=== PATIENT | female | born 1945 | race Caucasian/White ===

== ENCOUNTER 2017-05-11 14:01 | Emergency (ER) | payer OTHER ==
[~2017-05-11] VITALS: Ht 170.2 cm; Wt 59.0 kg
[~2017-05-11 14:01] MED LIST: ALL100T PO; ASPI-498 PO; GABA-497 PO; HYDR-4663 PO; HYDR200T PO; SENN-79 PO; SIMV-8 PO
[2017-05-11] MEDS ORDERED: VANCOMYCIN 1GM/250ML D5W 250 ML IV ONE (15:15)
[2017-05-11 15:37] LABS: Basophils # (auto) 0 uL; Basophils % (auto) 0.3 % (0.0-2.0); CONDITION Y; Eosinophils # (auto) 0.4 uL; Eosinophils % (auto) 2.4 % (0.0-7.0); Hemoglobin 13.2 g/dL (12.2-16.2); Lymphocytes # (auto) 1.4 uL; Lymphocytes % (auto) 9.9 % (10.0-50.0); Mean Corpuscular Hemoglobin 33.4 pg (28.0-32.0); Mean Corpuscular Hgb Conc. 33.7 g/dL (32.0-36.0); Mean Platelet Volume 9.8 fL (7.4-10.4); Monocytes % (auto) 6.8 % (0.0-12.0); Neutrophils # (auto) 11.7 uL; Neutrophils % (auto) 80.6 % (37.0-80.0); Platelet Count (auto) 269 10^3/uL (140-450); Red Cell Distribution Width 15.4 % (11.6-16.0); White Blood Cell 14.5 10^3/uL (4.4-10.8)
[2017-05-11 15:47] VITALS: BP 98/57
[2017-05-11 15:55] LABS: Albumin 2.3 g/dL (3.4-5.0); BUN/Creatinine Ratio 8.8; Calcium 9.4 mg/dL (8.5-10.1); Potassium 3.5 mmol/L (3.5-5.1)
[2017-05-11 16:00] LABS: Bilirubin, Total 0.4 mg/dL (0.2-1.0); Total Protein 6.3 g/dL (6.4-8.2)
== END 2017-05-11 17:15 | disposition home or self-care (01) ==
LOC: ER 14:06
DX: I21.4 Non-ST elevation (NSTEMI) myocardial infarction (principal); B96.89 Other specified bacterial agents as the cause of diseases classified elsewhere; I25.10 Atherosclerotic heart disease of native coronary artery without angina pectoris; G30.9 Alzheimer's disease, unspecified; F02.80 Dementia in other diseases classified elsewhere, unspecified severity, without behavioral disturbance, psychotic disturbance, mood disturbance, and anxiety; E11.42 Type 2 diabetes mellitus with diabetic polyneuropathy; I12.0 Hypertensive chronic kidney disease with stage 5 chronic kidney disease or end stage renal disease; E11.22 Type 2 diabetes mellitus with diabetic chronic kidney disease; N18.6 End stage renal disease; E03.9 Hypothyroidism, unspecified; F17.210 Nicotine dependence, cigarettes, uncomplicated; Z99.2 Dependence on renal dialysis; Z91.041 Radiographic dye allergy status
CPT/HCPCS: 36415; 71010; 80053; 84484; 85025; 93005; 96365; 99285; J1450; J3370

== ENCOUNTER 2017-08-08 16:20 | Inpatient (IN) | payer OTHER ==
[~2017-08-08] VITALS: Ht 170.2 cm; Wt 109.4 kg
[~2017-08-08 16:20] MED LIST changes: -HYDR-4663 PO; +HYDR-4683 PO
[2017-08-08 16:56] LABS: Basophils # (auto) 0.2 uL; Basophils % (auto) 1.1 % (0.0-2.0); Eosinophils # (auto) 0.7 uL; Hematocrit 39.8 % (36.0-46.0); Hemoglobin 13.2 g/dL (12.2-16.2); Lymphocytes # (auto) 1.7 uL; Lymphocytes % (auto) 12.7 % (10.0-50.0); Mean Corpuscular Hemoglobin 33.1 pg (28.0-32.0); Mean Corpuscular Hgb Conc. 33.2 g/dL (32.0-36.0); Mean Corpuscular Volume 99.6 fL (80.0-100.0); Mean Platelet Volume 8.3 fL (6.9-10.8); Monocytes # (auto) 0.9 uL; Monocytes % (auto) 6.9 % (0.0-12.0); Neutrophils # (auto) 10.1 uL; Neutrophils % (auto) 74.3 % (37.0-80.0); Platelet Count (auto) 258 10^3/uL (140-450); White Blood Cell 13.6 10^3/uL (4.4-10.8)
[2017-08-08 17:18] LABS: Anion Gap 11 (5-15); Aspartate Aminotransferase 11 U/L (15-37); BUN/Creatinine Ratio 9.3; Blood Urea Nitrogen 61 mg/dL (7-18); Calcium 9.5 mg/dL (8.5-10.1); Carbon Dioxide 21 mmol/L (21-32); Chloride 100 mmol/L (98-107); GFR African American 8 mL/min; GFR Non-African American 7 mL/min; Glucose 114 mg/dL (74-106); Sodium 132 mmol/L (136-145)
[2017-08-08 17:22] LABS: Alkaline Phosphatase 118 U/L (45-117); Bilirubin, Total 2.2 mg/dL (0.2-1.0); Total Protein 7.5 g/dL (6.4-8.2)
[2017-08-08 17:26] LABS: B-Type Natriuretic Peptide 287.63 pg/mL (0-100)
[2017-08-08 17:34] LABS: Temperature: 23.1 C (20.0-25.0)
[2017-08-08 17:36] LABS: Potassium 5.8 mmol/L (3.5-5.1)
[2017-08-08] MEDS ORDERED: ALBUTEROL SULF 2.5 MG/0.5ML(0.5%) NEB SOLN NEB ONE (19:00)
[2017-08-08] MEDS ORDERED: CALCIUM GLUC 4.65meq/50ml D5AE 50 ML IV ONE (19:00)
[2017-08-08] MEDS ORDERED: InsuLIN REG 1unit/0.01ml Soln (100units/ml) IV ONE (19:00)
[2017-08-08] MEDS ORDERED: DEXTROSE (50%) 50ML SYRG IV ONE (19:00)
[2017-08-08] MEDS ORDERED: SODIUM POLYSTYRENE SULF 15GM/60ML SUSP PO ONE (19:00)
[2017-08-08] MEDS ORDERED: SODIUM BICARBONATE 8.4% INJ 50ML SYRINGE IV ONE (19:00)
[2017-08-08] MEDS ORDERED: HYDROcodone-ACET 10/325MG TAB PO ONE (19:15)
[2017-08-08] MEDS ORDERED: cefTRIAXone 1GM/10ml IVPUSH 10 ML IV ONE (19:15)
[2017-08-08] MEDS ORDERED: ONDANSETRON HCL 4 MG/2 ML VIAL IV ONE (19:45)
[2017-08-08] MEDS ORDERED: TEMAZEPAM 15 MG CAP PO PRN (23:00)
[2017-08-08] MEDS ORDERED: ACETAMINOPHEN 325 MG TAB PO PRN (23:00)
[2017-08-08] MEDS ORDERED: HYDROcodone-ACET 5/325MG TAB PO PRN (23:00)
[2017-08-08] MEDS ORDERED: NITROGLYCERIN 0.4 MG SL TAB SL PRN (23:00)
[2017-08-08] MEDS ORDERED: MORPHINE SULF INJ 2 MG/ML SYRINGE 1ML IV PRN (23:00)
[2017-08-08] MEDS ORDERED: ONDANSETRON HCL 4 MG/2 ML VIAL IV PRN (23:00)
[2017-08-09] VITALS (7 sets, daily range): BP systolic 113–148; BP diastolic 54–82
[2017-08-09] MEDS ORDERED: ONDA4TAB5 PO (01:13)
[2017-08-09] MEDS ORDERED: METO10TA3 PO (01:13)
[2017-08-09] MEDS ORDERED: LACT10SO60 PO (01:13)
[2017-08-09] MEDS ORDERED: MORP15TA PO (04:10)
[2017-08-09] MEDS ORDERED: HYDR50TA15 PO (04:10)
[2017-08-09] MEDS ORDERED: OMEP20CA74 PO (04:10)
[2017-08-09 06:28] LABS: Basophils # (auto) 0.1 uL; Basophils % (auto) 0.5 % (0.0-2.0); Eosinophils # (auto) 0.3 uL; Hematocrit 32.1 % (36.0-46.0); Hemoglobin 10.8 g/dL (12.2-16.2); Lymphocytes # (auto) 1.2 uL; Lymphocytes % (auto) 11.4 % (10.0-50.0); Mean Corpuscular Hemoglobin 33.4 pg (28.0-32.0); Mean Corpuscular Hgb Conc. 33.6 g/dL (32.0-36.0); Mean Corpuscular Volume 99.3 fL (80.0-100.0); Mean Platelet Volume 8.5 fL (6.9-10.8); Monocytes # (auto) 0.9 uL; Monocytes % (auto) 7.9 % (0.0-12.0); Neutrophils # (auto) 8.4 uL; Neutrophils % (auto) 77.2 % (37.0-80.0); Platelet Count (auto) 210 10^3/uL (140-450); Red Cell Distribution Width 14.7 % (11.8-14.3); White Blood Cell 10.9 10^3/uL (4.4-10.8)
[2017-08-09 06:48] LABS: Albumin 2.4 g/dL (3.4-5.0); Calcium 9.1 mg/dL (8.5-10.1); Potassium 4.9 mmol/L (3.5-5.1)
[2017-08-09 06:49] LABS: BUN/Creatinine Ratio 9.9
[2017-08-09 06:54] LABS: Total Protein 5.7 g/dL (6.4-8.2)
[2017-08-09] MEDS ORDERED: ALLOPURINOL 100 MG TAB PO SCH (10:00)
[2017-08-09] MEDS ORDERED: PANTOPRAZOLE 40 MG TAB PO SCH (10:00)
[2017-08-09] MEDS ORDERED: HYDROXYCHLOROQUINE SULFATE 200 MG TAB PO SCH (10:00)
[2017-08-09] MEDS ORDERED: ENOXAPARIN SOD 30 MG/0.3 ML SYRINGE SC SCH (10:00)
[2017-08-09] MEDS ORDERED: HYDROcodone-ACET 10/325MG TAB PO PRN (11:15)
[2017-08-09] MEDS ORDERED: diphenhdrAMINE HCL 25 MG CAP PO ONE (11:15)
[2017-08-09] MEDS ORDERED: MORPHINE SULF 15mg ER tab PO PRN (11:15)
[2017-08-09] MEDS: HEPARIN SODIUM (PORCINE) 5000 UNITS/ML 1ML VIAL SC SCH (11:59)
[2017-08-09] MEDS ORDERED: HEPARIN SODIUM (PORCINE) 5000 UNITS/ML 1ML VIAL XX ONE (12:30)
[2017-08-09] MEDS ORDERED: ATORVASTATIN 20 MG TAB PO SCH (22:00)
[2017-08-09] MEDS ORDERED: cefTRIAXone 1GM/10ml IVPUSH 10 ML IV SCH (22:00)
== END 2017-08-09 18:58 | disposition home or self-care (01) | DRG 640 ==
LOC: ER 16:25 → TELE-EAST 16:26
PROVIDERS: ADMIT Nurse Practitioner; ATTEND Nurse Practitioner
PROC: 5A1D70Z Performance of Urinary Filtration, Intermittent, Less than 6 Hours Per Day (ICD-10-PCS; principal; 2017-08-09)
DX: E87.5 Hyperkalemia (principal); N18.6 End stage renal disease; E11.22 Type 2 diabetes mellitus with diabetic chronic kidney disease; E87.70 Fluid overload, unspecified; I13.11 Hypertensive heart and chronic kidney disease without heart failure, with stage 5 chronic kidney disease, or end stage renal disease; F17.210 Nicotine dependence, cigarettes, uncomplicated; I25.10 Atherosclerotic heart disease of native coronary artery without angina pectoris; J43.9 Emphysema, unspecified; E66.9 Obesity, unspecified; E05.00 Thyrotoxicosis with diffuse goiter without thyrotoxic crisis or storm; D72.829 Elevated white blood cell count, unspecified; Z82.49 Family history of ischemic heart disease and other diseases of the circulatory system; Z83.3 Family history of diabetes mellitus; Z85.118 Personal history of other malignant neoplasm of bronchus and lung; Z99.2 Dependence on renal dialysis; Z91.041 Radiographic dye allergy status; Z90.49 Acquired absence of other specified parts of digestive tract; Z68.37 Body mass index [BMI] 37.0-37.9, adult
CPT/HCPCS: 36415; 70450; 71020; 71250; 74176; 80053; 82962; 83880; 84132; 84484; 85025; 87081; 90935; 93005; 93970; 94644; 96365; 96367; 96375; 99291; J0610; J1815; J2405

== ENCOUNTER 2017-09-12 20:01 | Inpatient (IN) | payer OTHER ==
[~2017-09-12] VITALS: Ht 170.2 cm; Wt 59.0 kg
[~2017-09-12 20:01] MED LIST changes: +ALPR0.254 PO; +ATOR40TA52 PO; +DIPH25CA46 PO; -GABA-497 PO; +GABA300C10 PO; +HYDR50TA15 PO; +LACT10SO60 PO; +METO10TA3 PO; +MORP15TA PO; +OMEP20CA74 PO; +ONDA4TAB5 PO
[2017-09-12 20:53] LABS: Basophils # (auto) 0.1 uL; Basophils % (auto) 0.7 % (0.0-2.0); Eosinophils # (auto) 0.2 uL; Eosinophils % (auto) 1.6 % (0.0-7.0); Hematocrit 31.5 % (36.0-46.0); Hemoglobin 10.5 g/dL (12.2-16.2); Lymphocytes # (auto) 1.1 uL; Lymphocytes % (auto) 9.9 % (10.0-50.0); Mean Corpuscular Hemoglobin 32.7 pg (28.0-32.0); Mean Corpuscular Hgb Conc. 33.3 g/dL (32.0-36.0); Monocytes # (auto) 0.6 uL; Monocytes % (auto) 5.3 % (0.0-12.0); Neutrophils # (auto) 9.4 uL; Neutrophils % (auto) 82.5 % (37.0-80.0); Platelet Count (auto) 213 10^3/uL (140-450); Red Blood Cells 3.22 10^6/uL (4.0-5.20); Red Cell Distribution Width 15.1 % (11.8-14.3); White Blood Cell 11.4 10^3/uL (4.4-10.8)
[2017-09-12 20:57] LABS: Albumin 2.3 g/dL (3.4-5.0); Calcium 8.5 mg/dL (8.5-10.1); Magnesium 2.1 mg/dL (1.6-2.6); Potassium 3.5 mmol/L (3.5-5.1)
[2017-09-12 20:59] LABS: BUN/Creatinine Ratio 7.6
[2017-09-12] MEDS ORDERED: ASPirin 81 mg TAB PO ONE (21:00)
[2017-09-12] MEDS ORDERED: MORPHINE SULFATE 4 MG/ML SYR/VIAL IV ONE (21:00)
[2017-09-12 21:03] LABS: Bilirubin, Total 0.2 mg/dL (0.2-1.0); Total Protein 6.1 g/dL (6.4-8.2)
[2017-09-12] MEDS ORDERED: ALPRAZolam 0.5 MG TAB PO ONE (21:30)
[2017-09-12 22:33] LABS: Urine Bacteria NONE SEEN /hpf (None Seen); Urine Blood Negative /uL (Negative); Urine Specific Gravity 1.007 (1.001-1.035); Urine WBC 2 /hpf (0 - 5)
[2017-09-13] VITALS (7 sets, daily range): BP systolic 119–165; BP diastolic 58–75
[2017-09-13] MEDS ORDERED: NITROGLYCERIN 0.4 MG SL TAB SL PRN (00:45)
[2017-09-13] MEDS ORDERED: ALPRAZolam 0.25 MG TAB PO PRN (00:45)
[2017-09-13] MEDS ORDERED: DEXTROSE (50%) 50ML SYRG IV PRN (00:45)
[2017-09-13] MEDS ORDERED: ALBUTEROL SULF 2.5 MG/0.5ML(0.5%) NEB SOLN NEB PRN (00:45)
[2017-09-13] MEDS ORDERED: ONDANSETRON HCL 4 MG/2 ML VIAL IV PRN (00:45)
[2017-09-13] MEDS ORDERED: TEMAZEPAM 15 MG CAP PO PRN (00:45)
[2017-09-13] MEDS ORDERED: MORPHINE SULFATE 4 MG/ML SYR/VIAL IV PRN (00:45)
[2017-09-13] MEDS ORDERED: METOPROLOL TARTRATE 25 MG TAB PO ONE (00:45)
[2017-09-13] MEDS ORDERED: ACETAMINOPHEN 325 MG TAB PO PRN (00:45)
[2017-09-13] MEDS: InsuLIN REG 1unit/0.01ml Soln (100units/ml) SC SCH ×2 (06:33→12:00)
[2017-09-13] MEDS: ACCU-CHEK COMFORT CURVE STRIP VI SCH ×2 (06:33→12:38)
[2017-09-13] MEDS: HYDROcodone-ACET 5/325MG TAB PO PRN ×2 (09:29→13:32)
[2017-09-13] MEDS ORDERED: PANTOPRAZOLE 40 MG TAB PO SCH (10:00)
[2017-09-13] MEDS ORDERED: HYDROXYCHLOROQUINE SULFATE 200 MG TAB PO SCH (10:00)
[2017-09-13] MEDS ORDERED: HEPARIN SODIUM (PORCINE) 5000 UNITS/ML 1ML VIAL SC SCH (10:00)
[2017-09-13] MEDS ORDERED: METOPROLOL TARTRATE 25 MG TAB PO SCH (10:00)
[2017-09-13] MEDS ORDERED: ENOXAPARIN SOD 30 MG/0.3 ML SYRINGE SC SCH (10:00)
[2017-09-13] MEDS ORDERED: ASPirin 81 mg TAB PO SCH (10:00)
[2017-09-13] MEDS ORDERED: ALLOPURINOL 100 MG TAB PO SCH (10:00)
[2017-09-13] MEDS ORDERED: GABAPENTIN 300 MG CAP PO SCH (10:00)
[2017-09-13] MEDS ORDERED: ATORVASTATIN 20 MG TAB PO SCH (22:00)
== END 2017-09-13 16:50 | disposition home or self-care (01) | DRG 205 ==
LOC: ER 20:01 → EDBD 20:01 → TELE 20:02 → TELE-WESTW 09-13 03:00
PROVIDERS: ADMIT Nurse Practitioner; ATTEND Nurse Practitioner
DX: M94.0 Chondrocostal junction syndrome [Tietze] (principal); E43 Unspecified severe protein-calorie malnutrition; I13.2 Hypertensive heart and chronic kidney disease with heart failure and with stage 5 chronic kidney disease, or end stage renal disease; E11.22 Type 2 diabetes mellitus with diabetic chronic kidney disease; M32.9 Systemic lupus erythematosus, unspecified; E11.40 Type 2 diabetes mellitus with diabetic neuropathy, unspecified; E11.51 Type 2 diabetes mellitus with diabetic peripheral angiopathy without gangrene; N18.6 End stage renal disease; I25.10 Atherosclerotic heart disease of native coronary artery without angina pectoris; E11.65 Type 2 diabetes mellitus with hyperglycemia; D63.8 Anemia in other chronic diseases classified elsewhere; E78.5 Hyperlipidemia, unspecified; F17.210 Nicotine dependence, cigarettes, uncomplicated; F41.9 Anxiety disorder, unspecified; E05.00 Thyrotoxicosis with diffuse goiter without thyrotoxic crisis or storm; G47.00 Insomnia, unspecified; I50.9 Heart failure, unspecified; J44.9 Chronic obstructive pulmonary disease, unspecified; M10.9 Gout, unspecified; Z83.3 Family history of diabetes mellitus; Z86.73 Personal history of transient ischemic attack (TIA), and cerebral infarction without residual deficits; Z95.1 Presence of aortocoronary bypass graft; Z99.2 Dependence on renal dialysis; Z91.041 Radiographic dye allergy status; Z79.899 Other long term (current) drug therapy; Z90.49 Acquired absence of other specified parts of digestive tract; Z85.89 Personal history of malignant neoplasm of other organs and systems; I25.2 Old myocardial infarction; Z68.20 Body mass index [BMI] 20.0-20.9, adult
CPT/HCPCS: 36415; 71045; 80053; 81001; 82962; 83735; 83880; 84484; 85025; 87081; 93005; 94761

== ENCOUNTER 2017-09-21 19:40 | Inpatient (IN) | payer OTHER ==
[~2017-09-21] VITALS: Ht 154.9 cm; Wt 58.1 kg
[2017-09-21] MEDS ORDERED: ACETAMINOPHEN 325 MG TAB PO ONE (20:15)
[2017-09-21 21:26] LABS: Basophils # (auto) 0 uL; Basophils % (auto) 0.7 % (0.0-2.0); Eosinophils # (auto) 0 uL; Eosinophils % (auto) 0.1 % (0.0-7.0); Hematocrit 30.7 % (36.0-46.0); Hemoglobin 10.2 g/dL (12.2-16.2); Lymphocytes # (auto) 0.3 uL; Lymphocytes % (auto) 5.2 % (10.0-50.0); Mean Corpuscular Hemoglobin 32.8 pg (28.0-32.0); Mean Corpuscular Hgb Conc. 33.3 g/dL (32.0-36.0); Mean Corpuscular Volume 98.7 fL (80.0-100.0); Monocytes # (auto) 0.5 uL; Monocytes % (auto) 10.1 % (0.0-12.0); Neutrophils # (auto) 4.3 uL; Neutrophils % (auto) 83.9 % (37.0-80.0); Nucleated Red Blood Cells % 0.1 %; Platelet Count (auto) 169 10^3/uL (140-450); Red Blood Cells 3.11 10^6/uL (4.0-5.20); Red Cell Distribution Width 15.3 % (11.8-14.3); White Blood Cell 5.1 10^3/uL (4.4-10.8)
[2017-09-21 21:49] LABS: Albumin 2.7 g/dL (3.4-5.0); BUN/Creatinine Ratio 7.4; Bilirubin, Total 0.8 mg/dL (0.2-1.0); Calcium 8.4 mg/dL (8.5-10.1); Magnesium 2.8 mg/dL (1.6-2.6); Potassium 5.5 mmol/L (3.5-5.1); Total Protein 6.3 g/dL (6.4-8.2)
[2017-09-21 23:39] LABS: INR 1.04 (0.9-1.15); Partial Thromboplastin Time 44.8 sec (22.64-33.71); Prothrombin Time 11.3 sec (9.37-12.3)
[2017-09-22 00:24] VITALS: BP 114/68
[2017-09-22] MEDS ORDERED: HYDROcodone-ACET 10/325MG TAB PO ONE (01:15)
[2017-09-22] MEDS ORDERED: HEPARIN SODIUM (PORCINE) 5000 UNITS/ML 1ML VIAL ONE (02:18)
[2017-09-22 03:05] VITALS: BP 110/53
[2017-09-22 03:05] LABS: Urine Bacteria None Seen /hpf (None Seen)
[2017-09-22 03:33] LABS: Urine Specific Gravity 1.014 (1.001-1.035)
[2017-09-22 03:34] LABS: Urine Blood Normal /uL (Negative)
[2017-09-22 03:37] LABS: Urine WBC <1 /hpf (0 - 5)
[2017-09-22 04:19] VITALS: BP 118/60
[2017-09-22 06:48] LABS: Basophils # (auto) 0 uL; Basophils % (auto) 0.6 % (0.0-2.0); Eosinophils # (auto) 0 uL; Hemoglobin 10.5 g/dL (12.2-16.2); Lymphocytes # (auto) 0.6 uL; Lymphocytes % (auto) 10.5 % (10.0-50.0); Mean Corpuscular Hemoglobin 32.5 pg (28.0-32.0); Mean Corpuscular Hgb Conc. 32.7 g/dL (32.0-36.0); Mean Corpuscular Volume 99.1 fL (80.0-100.0); Monocytes # (auto) 0.4 uL; Monocytes % (auto) 7.2 % (0.0-12.0); Neutrophils # (auto) 4.5 uL; Neutrophils % (auto) 81.7 % (37.0-80.0); Platelet Count (auto) 164 10^3/uL (140-450); Red Blood Cells 3.23 10^6/uL (4.0-5.20); Red Cell Distribution Width 15.5 % (11.8-14.3); White Blood Cell 5.5 10^3/uL (4.4-10.8)
[2017-09-22 07:05] LABS: BUN/Creatinine Ratio 7.7; Calcium 8.6 mg/dL (8.5-10.1); Potassium 5.4 mmol/L (3.5-5.1)
[2017-09-22] MEDS ORDERED: DEXTROSE (50%) 50ML SYRG IV PRN (07:30)
[2017-09-22] MEDS ORDERED: ACETAMINOPHEN 500 MG TAB PO PRN (07:30)
[2017-09-22] MEDS: DOXYCYCLINE HYC 100MG/250ML 250 ML IV SCH ×2 (07:53→19:59)
[2017-09-22] MEDS: amLODIPine BESYLATE 5 MG TAB PO SCH (10:25)
[2017-09-22] MEDS: InsuLIN REG 1unit/0.01ml Soln (100units/ml) SC SCH ×3 (11:30→21:38)
[2017-09-22] MEDS: ACCU-CHEK COMFORT CURVE STRIP VI SCH ×3 (11:52→21:37)
[2017-09-22] MEDS: ENOXAPARIN SOD 30 MG/0.3 ML SYRINGE SC SCH (11:56)
[2017-09-22] MEDS ORDERED: cloNIDine HCL 0.1 MG TAB PO PRN (12:00)
[2017-09-22] MEDS: IPRATROPIUM BROM 0.5 MG/2.5ML INH SOL NEB SCH ×2 (12:04→18:00)
[2017-09-22] MEDS: ALBUTEROL SULF 2.5 MG/0.5ML(0.5%) NEB SOLN NEB SCH ×2 (12:04→18:00)
[2017-09-22] MEDS: METOPROLOL TARTRATE 25 MG TAB PO SCH ×2 (12:09→22:00)
[2017-09-22] MEDS: PANTOPRAZOLE 40 MG TAB PO SCH (12:09)
[2017-09-22] MEDS: GABAPENTIN 300 MG CAP PO SCH (14:26)
[2017-09-22 21:40] VITALS: BP 124/54
[2017-09-22] MEDS: ATORVASTATIN 20 MG TAB PO SCH (22:00)
[2017-09-23] MEDS: ALBUTEROL SULF 2.5 MG/0.5ML(0.5%) NEB SOLN NEB SCH ×4 (00:15→19:03)
[2017-09-23] MEDS: IPRATROPIUM BROM 0.5 MG/2.5ML INH SOL NEB SCH ×4 (00:16→19:03)
[2017-09-23] MEDS: HYDROcodone-ACET 5/325MG TAB PO PRN ×3 (00:24→22:10)
[2017-09-23 04:59] VITALS: BP 108/49
[2017-09-23 05:38] LABS: Basophils # (auto) 0 uL; Basophils % (auto) 0.2 % (0.0-2.0); Eosinophils # (auto) 0 uL; Hematocrit 25.6 % (36.0-46.0); Hemoglobin 8.5 g/dL (12.2-16.2); Lymphocytes # (auto) 0.6 uL; Mean Corpuscular Hgb Conc. 33.1 g/dL (32.0-36.0); Mean Corpuscular Volume 99.5 fL (80.0-100.0); Monocytes # (auto) 0.5 uL; Monocytes % (auto) 7.9 % (0.0-12.0); Neutrophils # (auto) 5.6 uL; Neutrophils % (auto) 82.9 % (37.0-80.0); Platelet Count (auto) 140 10^3/uL (140-450); Red Blood Cells 2.58 10^6/uL (4.0-5.20); Red Cell Distribution Width 15.2 % (11.8-14.3); White Blood Cell 6.7 10^3/uL (4.4-10.8)
[2017-09-23 06:00] LABS: BUN/Creatinine Ratio 8.7; Calcium 8.4 mg/dL (8.5-10.1); Magnesium 2.8 mg/dL (1.6-2.6)
[2017-09-23 06:14] LABS: Potassium 5.7 mmol/L (3.5-5.1)
[2017-09-23] MEDS: InsuLIN REG 1unit/0.01ml Soln (100units/ml) SC SCH ×4 (06:21→21:09)
[2017-09-23] MEDS: ACCU-CHEK COMFORT CURVE STRIP VI SCH ×4 (06:21→21:10)
[2017-09-23] MEDS: DOXYCYCLINE HYC 100MG/250ML 250 ML IV SCH ×2 (06:43→20:10)
[2017-09-23 09:09] VITALS: BP 118/46
[2017-09-23] MEDS: amLODIPine BESYLATE 5 MG TAB PO SCH (10:00)
[2017-09-23] MEDS: METOPROLOL TARTRATE 25 MG TAB PO SCH ×2 (10:00→20:54)
[2017-09-23] MEDS: GABAPENTIN 300 MG CAP PO SCH (11:30)
[2017-09-23] MEDS: ENOXAPARIN SOD 30 MG/0.3 ML SYRINGE SC SCH (11:30)
[2017-09-23] MEDS: PANTOPRAZOLE 40 MG TAB PO SCH (11:30)
[2017-09-23] MEDS ORDERED: EPOETIN ALFA 10,000 UNIT/1 ML VIAL IV ONE (12:00)
[2017-09-23] MEDS ORDERED: SODIUM CHL 0.9% 1000 ML BAG XX ONE (12:00)
[2017-09-23] MEDS ORDERED: BISACODYL 10 MG RECT SUPP PR ONE (17:15)
[2017-09-23] MEDS ORDERED: BISACODYL 10 MG RECT SUPP PR PRN (17:15)
[2017-09-23] MEDS: diphenhdrAMINE HCL 25 MG CAP PO PRN (21:04)
[2017-09-23] MEDS: ATORVASTATIN 20 MG TAB PO SCH (21:05)
[2017-09-23 22:00] VITALS: BP 101/43
[2017-09-24] MEDS: IPRATROPIUM BROM 0.5 MG/2.5ML INH SOL NEB SCH ×4 (00:28→18:00)
[2017-09-24] MEDS: ALBUTEROL SULF 2.5 MG/0.5ML(0.5%) NEB SOLN NEB SCH ×4 (00:28→18:00)
[2017-09-24 05:00] VITALS: BP 120/45
[2017-09-24] MEDS: ACCU-CHEK COMFORT CURVE STRIP VI SCH ×3 (05:32→16:57)
[2017-09-24] MEDS: InsuLIN REG 1unit/0.01ml Soln (100units/ml) SC SCH ×3 (05:32→16:57)
[2017-09-24 05:36] LABS: Basophils # (auto) 0 uL; Basophils % (auto) 0.3 % (0.0-2.0); Eosinophils # (auto) 0 uL; Eosinophils % (auto) 0.2 % (0.0-7.0); Hematocrit 26.6 % (36.0-46.0); Hemoglobin 8.7 g/dL (12.2-16.2); Lymphocytes # (auto) 0.6 uL; Lymphocytes % (auto) 12.1 % (10.0-50.0); Mean Corpuscular Hemoglobin 32.1 pg (28.0-32.0); Mean Corpuscular Hgb Conc. 32.7 g/dL (32.0-36.0); Monocytes # (auto) 0.5 uL; Monocytes % (auto) 10.6 % (0.0-12.0); Neutrophils # (auto) 3.9 uL; Neutrophils % (auto) 76.8 % (37.0-80.0); Platelet Count (auto) 154 10^3/uL (140-450); Red Blood Cells 2.71 10^6/uL (4.0-5.20); White Blood Cell 5.1 10^3/uL (4.4-10.8)
[2017-09-24 06:02] LABS: BUN/Creatinine Ratio 7.6; Calcium 8.3 mg/dL (8.5-10.1); Magnesium 2.4 mg/dL (1.6-2.6); Potassium 3.8 mmol/L (3.5-5.1)
[2017-09-24] MEDS: DOXYCYCLINE HYC 100MG/250ML 250 ML IV SCH (06:44)
[2017-09-24] MEDS: METOPROLOL TARTRATE 25 MG TAB PO SCH ×2 (08:53→21:56)
[2017-09-24] MEDS: PANTOPRAZOLE 40 MG TAB PO SCH (08:53)
[2017-09-24] MEDS: ENOXAPARIN SOD 30 MG/0.3 ML SYRINGE SC SCH (08:54)
[2017-09-24] MEDS: amLODIPine BESYLATE 5 MG TAB PO SCH (08:54)
[2017-09-24] MEDS: GABAPENTIN 300 MG CAP PO SCH (08:54)
[2017-09-24] MEDS: HYDROcodone-ACET 5/325MG TAB PO PRN ×4 (09:06→21:55)
[2017-09-24 09:53] VITALS: BP 139/58
[2017-09-24 13:00] VITALS: BP 111/48
[2017-09-24] MEDS ORDERED: EPOETIN ALFA 10,000 UNIT/1 ML VIAL IV ONE (18:15)
[2017-09-24] MEDS ORDERED: SODIUM CHL 0.9% 1000 ML BAG XX ONE (18:15)
[2017-09-24 18:26] VITALS: BP 116/47
[2017-09-24] MEDS: ATORVASTATIN 20 MG TAB PO SCH (21:55)
[2017-09-24] MEDS: diphenhdrAMINE HCL 25 MG CAP PO PRN (21:55)
[2017-09-24] MEDS: DOXYCYCLINE 100 MG TAB/CAP PO SCH (21:55)
[2017-09-24 22:00] VITALS: BP 113/65
[2017-09-25] MEDS: IPRATROPIUM BROM 0.5 MG/2.5ML INH SOL NEB SCH ×3 (00:10→12:40)
[2017-09-25] MEDS: ALBUTEROL SULF 2.5 MG/0.5ML(0.5%) NEB SOLN NEB SCH ×3 (00:10→12:40)
[2017-09-25 01:35] VITALS: BP 113/65
[2017-09-25] MEDS: HYDROcodone-ACET 5/325MG TAB PO PRN (04:13)
[2017-09-25 05:00] VITALS: BP 108/60
[2017-09-25 06:36] LABS: BUN/Creatinine Ratio 8.7; Calcium 9.2 mg/dL (8.5-10.1); Potassium 3.9 mmol/L (3.5-5.1)
[2017-09-25] MEDS: InsuLIN REG 1unit/0.01ml Soln (100units/ml) SC SCH ×3 (07:00→14:13)
[2017-09-25] MEDS: ACCU-CHEK COMFORT CURVE STRIP VI SCH ×2 (07:58→14:13)
[2017-09-25] MEDS: GABAPENTIN 300 MG CAP PO SCH (10:20)
[2017-09-25] MEDS: PANTOPRAZOLE 40 MG TAB PO SCH (10:20)
[2017-09-25] MEDS: METOPROLOL TARTRATE 25 MG TAB PO SCH (10:20)
[2017-09-25] MEDS: amLODIPine BESYLATE 5 MG TAB PO SCH (10:20)
[2017-09-25] MEDS: DOXYCYCLINE 100 MG TAB/CAP PO SCH (10:21)
[2017-09-25] MEDS: ENOXAPARIN SOD 30 MG/0.3 ML SYRINGE SC SCH (10:21)
[2017-09-25 13:17] VITALS: BP 130/64
== END 2017-09-25 14:55 | disposition home or self-care (01) | DRG 291 ==
LOC: ER 19:40 → TELE 19:41 → TELE-WESTW 09-22 21:00
PROVIDERS: ADMIT Nurse Practitioner Family; ATTEND Family Medicine
PROC: 5A09357 Assistance with Respiratory Ventilation, Less than 24 Consecutive Hours, Continuous Positive Airway Pressure (ICD-10-PCS; 2017-09-22)
PROC: 5A1D70Z Performance of Urinary Filtration, Intermittent, Less than 6 Hours Per Day (ICD-10-PCS; principal; 2017-09-25)
DX: I13.2 Hypertensive heart and chronic kidney disease with heart failure and with stage 5 chronic kidney disease, or end stage renal disease (principal); N18.6 End stage renal disease; G93.41 Metabolic encephalopathy; E11.22 Type 2 diabetes mellitus with diabetic chronic kidney disease; E11.51 Type 2 diabetes mellitus with diabetic peripheral angiopathy without gangrene; J44.1 Chronic obstructive pulmonary disease with (acute) exacerbation; N39.0 Urinary tract infection, site not specified; E87.1 Hypo-osmolality and hyponatremia; I25.10 Atherosclerotic heart disease of native coronary artery without angina pectoris; D64.9 Anemia, unspecified; E78.5 Hyperlipidemia, unspecified; E87.5 Hyperkalemia; F03.90 Unspecified dementia, unspecified severity, without behavioral disturbance, psychotic disturbance, mood disturbance, and anxiety; F17.210 Nicotine dependence, cigarettes, uncomplicated; I25.2 Old myocardial infarction; F41.1 Generalized anxiety disorder; I50.9 Heart failure, unspecified; R62.7 Adult failure to thrive; Z79.899 Other long term (current) drug therapy; Z82.49 Family history of ischemic heart disease and other diseases of the circulatory system; Z85.118 Personal history of other malignant neoplasm of bronchus and lung; Z86.73 Personal history of transient ischemic attack (TIA), and cerebral infarction without residual deficits; Z90.2 Acquired absence of lung [part of]; Z91.19 Patient's noncompliance with other medical treatment and regimen; Z99.2 Dependence on renal dialysis; Z90.49 Acquired absence of other specified parts of digestive tract; E03.9 Hypothyroidism, unspecified
CPT/HCPCS: 36415; 36556; 36600; 70450; 71045; 80048; 80053; 81001; 82805; 82962; 83605; 83735; 83880; 84484; 85025; 85379; 85610; 85730; 87040; 87081; 90935; 93005; 94640; 94660; 96365; 96372; 99291; J0885; J1642; J1815; J3490

== ENCOUNTER 2017-10-06 18:22 | Emergency (ER) | payer OTHER ==
[2017-10-06 19:28] LABS: Hematocrit 29.6 % (36.0-46.0); Hemoglobin 9.5 g/dL (12.2-16.2); Mean Corpuscular Hemoglobin 31.5 pg (28.0-32.0); Mean Corpuscular Volume 98.4 fL (80.0-100.0); Platelet Count (auto) 332 10^3/uL (140-450); Red Cell Distribution Width 15.6 % (11.8-14.3); White Blood Cell 13.1 10^3/uL (4.4-10.8)
[2017-10-06 19:48] LABS: BUN/Creatinine Ratio 4.8; Bilirubin, Total 0.4 mg/dL (0.2-1.0); Calcium 8.6 mg/dL (8.5-10.1); Potassium 3.6 mmol/L (3.5-5.1); Total Protein 6.9 g/dL (6.4-8.2)
[2017-10-06 19:50] LABS: Band Neutrophils % (manual) 0; Basophils % (manual) 0 (0.0-2.0); Blast Cells 0; Promyelocytes % 0; Reactive Lymphocytes 0
[2017-10-06 20:38] LABS: Eosinophils % (manual) 1 (0-7); Lymphocytes % (manual) 8 (10.0-50.0); Metamyelocytes % 2; Monocytes % (manual) 1 (0-12); Myelocytes % 1
[2017-10-06] MEDS ORDERED: ACETAMINOPHEN 325 MG TAB PO PRN (23:15)
[2017-10-06] MEDS ORDERED: DEXTROSE (50%) 50ML SYRG IV PRN (23:15)
[2017-10-06] MEDS ORDERED: ALPRAZolam 0.25 MG TAB PO PRN (23:15)
[2017-10-06] MEDS ORDERED: ONDANSETRON HCL 4 MG/2 ML VIAL IV PRN (23:15)
[2017-10-06] MEDS ORDERED: HYDROcodone-ACET 5/325MG TAB PO PRN (23:15)
[2017-10-06] MEDS ORDERED: DOCUSATE SOD 100 MG CAP PO PRN (23:15)
[2017-10-06] MEDS ORDERED: TEMAZEPAM 15 MG CAP PO PRN (23:15)
[2017-10-07] MEDS ORDERED: ACCU-CHEK COMFORT CURVE STRIP VI SCH
[2017-10-07] MEDS ORDERED: InsuLIN REG 1unit/0.01ml Soln (100units/ml) SC SCH
[2017-10-07] MEDS ORDERED: ETOMIDATE (2MG/ML) 20ML VIAL IV ONE ×2 (00:25→01:00)
[2017-10-07 01:25] VITALS: BP 132/54
[2017-10-07] MEDS ORDERED: MORPHINE SULF 15mg ER tab PO SCH (10:00)
[2017-10-07] MEDS ORDERED: HYDROXYCHLOROQUINE SULFATE 200 MG TAB PO SCH (10:00)
[2017-10-07] MEDS ORDERED: ATORVASTATIN 20 MG TAB PO SCH (22:00)
[2017-10-07] MEDS ORDERED: PATIENTS OWN MEDICATION (simvastatin 20 MG) PO SCH (22:00)
== END 2017-10-07 01:34 | disposition short-term general hospital (02) ==
LOC: EDBD 18:22 → ER 18:22 → UNDOADMIN 18:23 → OVERFLOW 18:23 → ER 10-07 01:34
DX: S42.402A Unspecified fracture of lower end of left humerus, initial encounter for closed fracture (principal); R41.82 Altered mental status, unspecified; R55 Syncope and collapse; R53.1 Weakness; J45.909 Unspecified asthma, uncomplicated; E11.22 Type 2 diabetes mellitus with diabetic chronic kidney disease; I13.2 Hypertensive heart and chronic kidney disease with heart failure and with stage 5 chronic kidney disease, or end stage renal disease; N18.6 End stage renal disease; I25.2 Old myocardial infarction; E78.5 Hyperlipidemia, unspecified; I25.10 Atherosclerotic heart disease of native coronary artery without angina pectoris; F17.210 Nicotine dependence, cigarettes, uncomplicated; Z90.49 Acquired absence of other specified parts of digestive tract; Z90.710 Acquired absence of both cervix and uterus; Z99.2 Dependence on renal dialysis; Z79.4 Long term (current) use of insulin; W07.XXXA Fall from chair, initial encounter; Y93.89 Activity, other specified; Y92.89 Other specified places as the place of occurrence of the external cause; Y99.8 Other external cause status; S09.8XXA Other specified injuries of head, initial encounter
CPT/HCPCS: 24505; 36415; 51702; 70450; 71045; 73060; 80053; 83605; 85007; 85027; 93005; 99291